=== PATIENT | male | born 1965 | race Caucasian/White ===

== ENCOUNTER 2017-12-06 22:32 | Observation (INO) ==
[2017-12-06] MEDS ORDERED: Sod Chloride 0.9% Inj 1,000 ML IV.SIG ONE (23:32)
--- NOTE | 2017-12-06 23:35 | ED ---
HPI General Chief complaint: Dizziness Stated complaint: [place]/Muscle cramps x 5pm Time Seen by Provider: 12/06/17 22:54 Source: patient, family, RN notes reviewed and old records reviewed Mode of arrival: ambulatory History of Present Illness HPI narrative: 52yM presenting with dizziness, fatigue, and muscle cramping. The patient states that he works in [employer] and was outside in the sun for hours today. Around 5 PM, he began to feel "dizzy like the room is spinning", had generalized fatigue, and began to have muscle cramping in his lower back and legs. Denies fever or chills, chest pain, cough, dyspnea, palpitations, diarrhea, or dysuria. He admits to nausea and "dry heaving". History of PE after plane trip several years ago, no longer on anticoagulation. Family history of father and brother with [place]/ CAD, mother with DM. Related Data Home Medications Medication Instructions Recorded Confirmed duloxetine [Cymbalta] 60 mg PO DAILY 12/06/17 12/06/17 lisinopril 10 mg PO DAILY 12/06/17 12/06/17 Allergies Allergy/AdvReac Type Severity Reaction Status Date / Time No Known Allergies Allergy Unverified 12/06/17 22:33 Review of Systems ROS: all other systems reviewed are negative Constitutional Reports body ache(s) and Reports headache(s) Eyes Denies blurry vision ENT Denies nasal congestion Cardiovascular Denies chest pain Respiratory Denies cough Gastrointestinal Denies nausea Genitourinary Denies dysuria Musculoskeletal Reports myalgias Neurologic Denies confusion Psychiatric Denies confusion PMFSH History History Provided By: Patient Medical History Medical History Depression (Acute) Hx of blood clots (Acute) Hypertension (Acute) Social History Social History Substance History: No History of Abuse Second Hand Smoke Exposure: No Smoking Status: Never smoker Tobacco Type: Smokeless Tobacco How Often Do You Have a Drink Containing Alcohol: 4 or more times a week Recent Travel in [facility] within the Last 8 Weeks: No Recent Out of Country Travel within the Last 8 Weeks: No Exam Const General: healthy appearing and no acute distress [facility] Head: normocephalic and atraumatic Face and sinus: normal facial exam Other: Mucosa dry Eyes General: appearance normal, both eyes and all related structures Pupils: PERRL Chest Chest: normal inspection of the chest Resp Effort & Inspection: normal respiratory effort Auscultation: no rhonchi and no wheezes Cardio Rate: regular rate Rhythm: regular rhythm GI Inspection: non-distended Palpation: soft and nontender Skin Other: Sunburn to face, arms, and legs Neuro General: alert, awake and oriented x3 Other: Pupils 3 mm and reactive bilaterally, no nystagmus assembler for puller over hand II-XII grossly intact Speech clear and fluent, no slurred speech or aphasia Motor strength 5/5 and sensation intact to all extremities, no pronator drift Ambulates with steady, even gait Extrem Other: No lower extremity edema or calf tenderness Psych Affect: normal affect Course Initial Documented Vital Signs Temperature 98.4 F 12/06/17 22:33 Pulse Rate 107 H 12/06/17 22:33 Respiratory Rate 20 12/06/17 22:33 Blood Pressure 122/79 12/06/17 22:33 Pulse Oximetry 95 12/06/17 22:33 Last Documented Vital Signs Temperature 98.4 F 12/06/17 22:33 Pulse Rate 107 H 12/06/17 22:33 Respiratory Rate 20 12/06/17 22:33 Blood Pressure 122/79 12/06/17 22:33 Pulse Oximetry 95 12/06/17 22:33 Medical Decision Making [facility] Narrative Medical decision making narrative: Assessment: 52yM presenting with dizziness, fatigue, muscle cramping Plan: EKG IV fluids Labs Addendum: Patient's workup shows acute kidney injury (creat 1.7, last labs in creat was 0.8), pseudohyponatremia, glucose of 200 with anion gap of 17. Will also check lactic acid, B-hydroxybutyrate, and VBG. The patient reports no personal history of DM but does have a family history. This patient will need IV hydration, insulin, and recheck labs/ glucose until anion gap closes. I explained these results to the patient and his daughter, who understand and agree. Case discussed with Marylin from [facility], patient to be kept for obs under Dr. Harmon. Medical Screen Exam Complete: Yes Emergency Medical Condition: Yes Differential Diagnosis Differential Diagnosis: Differential diagnosis includes, but is not limited to: dehydration, electrolyte abnormality, rhabdomyolysis, arrhythmia Lab Data Lab results reviewed: Yes I reviewed the patient's lab results. Result diagrams: 12/06/17 23:55 12/06/17 23:55 Lab Results 12/06/17 12/06/17 Range/Units 23:55 23:55 CBC w Diff Slide review pending WBC 12.6 H (4.0-11.0) th/mm3 RBC 4.86 (4.50-5.90) mil/mm3 Hgb 16.9 (13.0-17.0) gm/dL Hct 46.9 (39.0-51.0) % MCV 96.5 (80.0-100.0) fL MCH 34.8 H (27.0-34.0) pg MCHC 36.1 H (32.0-36.0) % RDW 12.5 (11.6-17.2) % Plt Count 314 (150-450) th/mm3 MPV 8.2 (7.0-11.0) fL Neut % (Auto) 70.2 H (16.0-70.0) % Lymph % (Auto) 20.2 (9.0-44.0) % [place] % (Auto) 5.9 (0.0-8.0) % Eos % (Auto) 0.5 (0.0-4.0) % Baso % (Auto) 3.2 H (0.0-2.0) % Neut # (Auto) 8.9 H (1.8-7.7) th/mm3 Lymph # (Auto) 2.5 (1.0-4.8) th/mm3 [place] # (Auto) 0.7 (0.0-0.9) th/mm3 Eos # (Auto) 0.1 (0.0-0.4) th/mm3 Baso # (Auto) 0.4 H (0.0-0.2) th/mm3 WBC Differential . Diff Scan Auto diff confirmed Differential Comment . Platelet Morphology Giant H (Normal) Sodium 130 L (136-145) meq/L Potassium 3.9 (3.5-5.1) meq/L Chloride 92 L (98-107) meq/L Carbon Dioxide 20.7 L (21.0-32.0) meq/L Anion Gap 17 H (5-15) meq/L BUN 17 (7-18) mg/dL Creatinine 1.70 H (0.60-1.30) mg/dL Estimated GFR 43 L (>89) mL/min Random Glucose 200 H (74-106) mg/dL Calcium 9.4 (8.5-10.1) mg/dL Magnesium 2.3 (1.5-2.5) mg/dL Total Bilirubin 0.8 (0.2-1.0) mg/dL AST 58 H (15-37) U/L ALT 107 H (12-78) U/L Alkaline Phosphatase 52 (45-117) U/L Total Creatine Kinase 265 (39-308) U/L Total Protein 8.1 (6.4-8.2) g/dL Albumin 4.5 (3.4-5.0) g/dL ECG Data Attestation: I personally reviewed and interpreted this ECG as follows: Interpretation: Rate: 90 BPM Rhythm: Sinus [place]: Normal Intervals: Normal intervals, no blocks, QTc 394 ms Q waves: III T waves: Inverted in III ST segments: No elevations or depressions Impression: Non-specific EKG, no significant changes as compared to EKG from 11/14. Discharge Plan Physicians Team ED Provider: Sofia Pollock Primary Care Provider: Lamine Westfall Rxs /Orders / Referrals /Forms Prescriptions: No Action lisinopril 10 mg Tablet 10 mg PO DAILY RF: 0 duloxetine [Cymbalta] 60 mg Capsule,Delayed Release(Dr/Ec) 60 mg PO DAILY RF: 0 Status ED Status: With Doctor
[2017-12-07 00:26] LABS: Baso # (Auto) 0.4 th/mm3 (0.0-0.2); Baso % (Auto) 3.2 % (0.0-2.0); Chloride 92 meq/L (98-107); Eos # (Auto) 0.1 th/mm3 (0.0-0.4); Eos % (Auto) 0.5 % (0.0-4.0); Hematocrit 46.9 % (39.0-51.0); Hemoglobin 16.9 gm/dL (13.0-17.0); Lymph # (Auto) 2.5 th/mm3 (1.0-4.8); Lymph % (Auto) 20.2 % (9.0-44.0); Mean Corpuscular Hemoglobin 34.8 pg (27.0-34.0); Mean Corpuscular Volume 96.5 fL (80.0-100.0); Mean Platelet Volume 8.2 fL (7.0-11.0); Mono # (Auto) 0.7 th/mm3 (0.0-0.9); Mono % (Auto) 5.9 % (0.0-8.0); Neut # (Auto) 8.9 th/mm3 (1.8-7.7); Neut % (Auto) 70.2 % (16.0-70.0); Platelet Count 314 th/mm3 (150-450); Potassium 3.9 meq/L (3.5-5.1); Red Blood Count 4.86 mil/mm3 (4.50-5.90); Red Cell Distribution Width 12.5 % (11.6-17.2); Sodium 130 meq/L (136-145); White Blood Count 12.6 th/mm3 (4.0-11.0)
[2017-12-07 00:30] LABS: Albumin 4.5 g/dL (3.4-5.0); Anion Gap 17 meq/L (5-15); Blood Urea Nitrogen 17 mg/dL (7-18); Calcium 9.4 mg/dL (8.5-10.1); Carbon Dioxide 20.7 meq/L (21.0-32.0); Glucose,Random 200 mg/dL (74-106); Magnesium 2.3 mg/dL (1.5-2.5)
[2017-12-07] MEDS ORDERED: Sod Chloride 0.9% Inj 1,000 ML IV.SIG ONE (00:32)
[2017-12-07 00:33] LABS: Alanine Aminotransferase 107 U/L (12-78); Aspartate Aminotransferase 58 U/L (15-37); Glomerular Filtration Rate 43 mL/min (>89)
[2017-12-07 00:35] LABS: Mean Corpuscular HGB Conc 36.1 % (32.0-36.0); Total Protein 8.1 g/dL (6.4-8.2)
[2017-12-07 00:36] LABS: Alkaline Phosphatase 52 U/L (45-117); Creatine Kinase 265 U/L (39-308)
[2017-12-07 01:19] LABS: VBG Base Excess -0.3 mmol/L (-2-2); VBG Blood Gas Oxygen Content 8.3 Vol % (9.0-17.0); VBG PCO2 46 mmHG (44-48); VBG PH 7.35 (7.360-7.400)
[2017-12-07 01:20] LABS: VBG PO2 26 mmHG (35-40)
[2017-12-07] MEDS ORDERED: LORazepam 1 MG Tablet PO PRN (01:26)
[2017-12-07] MEDS ORDERED: Haloperidol Inj 5 MG/ML Ampul IV.PUSH PRN (01:26)
[2017-12-07 01:49] LABS: Bilirubin,Urine Negative (Negative); Clarity,Urine Clear (Clear); Color,Urine Yellow (Yellw/Straw); Glucose,Urine (UA) Negative (Negative); Leukocyte Esterase,Urine Negative (Negative); Nitrite,Urine Negative (Negative); PH,Urine 5.5 (5.0-8.5); Urobilinogen,Urine 0.2 mg/dL (Less than 2)
[2017-12-07 01:56] LABS: Amorphous Sediment,Urine Few /hpf; RBC,Urine 0-3 /hpf (0-3); Squamous Epithelial Cell,Urine 0-5 /hpf (0-5); WBC,Urine 0-5 /hpf (0-5)
[2017-12-07] MEDS: Sod Chloride 0.9% Inj 1,000 ML IV.CONT SCH ×2 (02:21→11:14)
[2017-12-07] MEDS ORDERED: Dextrose 50% in Water 50 ML Vial IV.PUSH PRN (04:46)
[2017-12-07] MEDS: Insulin NovoLOG Aspart Correctional Sugar Inj SQ SCH ×6 (05:00→21:21)
[2017-12-07 06:37] LABS: Calcium 8.8 mg/dL (8.5-10.1); Carbon Dioxide 26.3 meq/L (21.0-32.0); Magnesium 2.2 mg/dL (1.5-2.5); Potassium 3.8 meq/L (3.5-5.1)
--- NOTE | 2017-12-07 09:00 | P.HP ---
History of Present Illness Primary Care Physician: Lamine Westfall DO Chief Complaint: Muscle cramps, lightheadedness, weakness History of Present Illness: 52-year-old male with known history of hypertension, hyperlipidemia, pulmonary emboli who presented the hospital because of lightheadedness, weakness , muscle cramps. 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 Patient states that when he got home he tried to drink a beer, however it did not taste good to him so he poured it out. His symptoms did not improve so he came to emergency department for evaluation. Patient had workup done and found to have elevated glucose, electrolyte abnormalities, acute kidney injury, signs of dehydration. Patient did have a mild anion gap at 17 which was easily corrected. Minimal elevation of beta hydroxybutyrate. Patient was started on IV fluid. Patient was given insulin 7 units in the emergency department with significant improvement of his glucose. Patient does not have any history of diabetes. It was recommended by the ER physician that the patient be observed in the hospital for further evaluation and management. Patient denies any polydipsia, polyuria, polyphagia. Denies any history of diabetes. Does have family history with his mother having diabetes. - Diagnosis (1) Diabetes mellitus, new onset (2) Dehydration (3) Acute kidney injury Review of Systems All other systems reviewed negative except as stated in HPI Gastrointestinal: Reports nausea Musculoskeletal: Reports muscle cramps Neurologic: Reports dizziness PMFSH - History History Provided By: Patient - Medical History Medical History: Medical History (Last Updated 12/07/17 @ 09:37 by YULISSA Salazar) Depression History of pulmonary embolism Hyperlipidemia Hypertension - Surgical History Surgical History: Surgical History (Last Updated 12/07/17 @ 09:37 by YULSISA Salazar) History of tonsillectomy - Family History Family History: Family History (Last Updated 12/07/17 @ 09:36 by YULISSA Salazar) Mother History of diabetes mellitus History of throat cancer Father History of heart disease Brother History of heart disease - Tobacco History Second Hand Smoke Exposure: No Tobacco Use In Past 30 Days: Yes Smoking Status: Never smoker Tobacco Type: Smokeless Tobacco - Alcohol History How Often Do You Have a Drink Containing Alcohol: 4 or more times a week - Substance Use History Substance History: No History of Abuse - Travel History Recent Travel in the [place] Within the Last 8 Weeks: No Recent Travel Out of the Country Within the Last 8 Weeks: No - Immunization History Tetanus Immunization: Unable to Assess Hx Influenza Vaccine This Season: Unable to Assess Medications and Allergies Active Medications: Active Medications Dextrose (D50w Vial) 50 ml IV.PUSH UNSCH PRN PRN Reason: PER HYPOGLYCEMIA PROTOCOL Flumazenil (Romazecon Inj) 0.2 mg IV.PUSH Q1M PRN PRN Reason: OVERSEDATION Glucagon (Glucagon Inj) 1 mg OTHER PRN PRN PRN Reason: for Hypoglycemia Protocol Haloperidol Lactate (Haldol Inj) 1 mg IV.PUSH Q15M PRN PRN Reason: for severe agitation Sodium Chloride (Ns Inj) 1,000 mls @ 100 mls/hr IV.CONT .Q10H ANITRA Last Admin: 12/07/17 02:21 Dose: 100 mls/hr Insulin Aspart (Novolog Insulin Correctional Sugar Inj) 0 unit SQ Q4HR ANITRA; Protocol Last Admin: 12/07/17 08:47 Dose: 2 unit Lorazepam (Ativan) 1 mg PO Q4H PRN PRN Reason: for CIWA 8-10 Lorazepam (Ativan Inj) 2 mg IV.PUSH Q2H PRN PRN Reason: for CIWA 11-14 Lorazepam (Ativan Inj) 2 mg IV.PUSH Q1H PRN PRN Reason: for CIWA 15-20 Lorazepam (Ativan Inj) 2 mg IV.PUSH Q15M PRN PRN Reason: for CIWA > 20 Lorazepam (Ativan Inj) 1 mg IV.PUSH Q4H PRN PRN Reason: for CIWA 8-10 Lorazepam (Ativan) 2 mg PO Q2H PRN PRN Reason: for CIWA 11-14 Ondansetron HCl (Zofran Inj) 4 mg IV.PUSH Q6H PRN PRN Reason: NAUSEA OR VOMITING Allergies Allergy/AdvReac Type Severity Reaction Status Date / Time No Known Allergies Allergy Unverified 12/06/17 22:33 Home Medications Medication Instructions Recorded Confirmed Type duloxetine [Cymbalta] 60 mg PO DAILY 12/06/17 12/06/17 History lisinopril 10 mg PO DAILY 12/06/17 12/06/17 History Exam Vital signs: Vital Signs 12/06/17 22:33 12/07/17 01:11 12/07/17 02:00 Temperature 98.4 F 97.1 F L Pulse Rate 107 H 99 H 95 H Respiratory Rate 20 16 20 Blood Pressure 122/79 140/93 H 127/71 Pulse Oximetry 95 100 12/07/17 04:00 12/07/17 08:00 Temperature 97.2 F L 97.4 F L Pulse Rate 97 H 76 Respiratory Rate 20 20 Blood Pressure 115/65 125/71 Pulse Oximetry 96 97 Intake & Output 12/06/17 12/07/17 12/07/17 18:59 06:59 18:59 Intake Total 3200 / 3200 Balance 3200 / 3200 Weight 95.8 kg Intake: IV 1999 NS Inj 1,000 ML @ Wide Open IV. 1999 SIG BOLUS ONE Rx#:[id number] Oral 1200 / 1200 Other: # Voids 4 Weight On Admission 92.986 kg Narrative: GENERAL: Well-developed, well-nourished, in no acute distress. alert and orientated HEENT: Head is normocephalic without any lesions or masses noted. Facial features are symmetric. Eyes: Pupils equal round reactive to light. Extraocular muscles are intact. Conjunctivae were clear. Oropharyngeal: Pharynx without any erythema edema. Tongue is midline without deviation. Buccal mucosa is moist without any masses or lesions NECK: Supple without any masses. Trachea midline no deviation. No JVD, no bruits are appreciated CARDIAC: Regular rhythm, regular rate. S1/S2 are heard. No murmurs gallops or rubs. LUNGS: Clear to auscultation bilaterally. No wheeze, rhonchi or rales. No use of accessory muscles on inspiration or expiration. ABDOMEN: Soft, nontender. Nondistended. Bowel sounds heard in all 4 quadrants. No organomegaly or masses. Negative rebound, negative guarding EXTREMITIES: No edema, pulses are equal bilaterally. No cyanosis or clubbing NEUROLOGY: Mood and affect appear appropriate. Cranial nerves II through XII grossly intact. Muscle strength 5/5 in upper and lower extremities bilaterally. Deep tendon reflexes are 2+ in upper and lower extremities bilaterally. Results - Labs CBC & Chem 7: 12/07/17 05:10 12/07/17 05:10 Labs: Laboratory Results - last 24 hr 12/06/17 12/06/17 12/07/17 23:55 23:55 01:10 CBC w Diff Slide review pending WBC 12.6 H RBC 4.86 Hgb 16.9 Hct 46.9 MCV 96.5 MCH 34.8 H MCHC 36.1 H RDW 12.5 Plt Count 314 MPV 8.2 Neut % (Auto) 70.2 H Lymph % (Auto) 20.2 [place] % (Auto) 5.9 Eos % (Auto) 0.5 Baso % (Auto) 3.2 H Neut # (Auto) 8.9 H Lymph # (Auto) 2.5 [place] # (Auto) 0.7 Eos # (Auto) 0.1 Baso # (Auto) 0.4 H WBC Differential . Diff Scan Auto diff confirmed Differential Comment . Platelet Morphology Giant H Puncture Site Patient Temperature VBG pH VBG pCO2 VBG pO2 VBG HCO3 VBG O2 Saturation VBG O2 Content VBG Base Excess VBG Carboxyhemoglobin VBG Methemoglobin Hemoglobin Inspired O2 Critical Value Sodium 130 L Potassium 3.9 Chloride 92 L Carbon Dioxide 20.7 L Anion Gap 17 H BUN 17 Creatinine 1.70 H Estimated GFR 43 L POC Glucose Random Glucose 200 H Lactic Acid 2.1 H Calcium 9.4 Magnesium 2.3 Total Bilirubin 0.8 AST 58 H ALT 107 H Alkaline Phosphatase 52 Total Creatine Kinase 265 Total Protein 8.1 Albumin 4.5 Beta-Hydroxybutyric Acd Urine Color Urine Clarity Urine pH Ur Specific [place] Urine Protein Urine Glucose (UA) Urine Ketones Urine Occult Blood Urine Nitrate Urine Bilirubin Urine Urobilinogen Ur Leukocyte Esterase Urine RBC Urine WBC Ur Squamous Epith Cells Amorphous Sediment Micro UA Comment Ur Microscopic Review Urine Culture Comments 12/07/17 12/07/17 12/07/17 01:10 01:10 01:25 CBC w Diff WBC RBC Hgb Hct MCV MCH MCHC RDW Plt Count MPV Neut % (Auto) Lymph % (Auto) [place] % (Auto) Eos % (Auto) Baso % (Auto) Neut # (Auto) Lymph # (Auto) [place] # (Auto) Eos # (Auto) Baso # (Auto) WBC Differential Diff Scan Differential Comment Platelet Morphology Puncture Site R arm Patient Temperature 98.6 VBG pH 7.35 L VBG pCO2 46 VBG pO2 26 L* VBG HCO3 25 VBG O2 Saturation 37 L VBG O2 Content 8.3 L VBG Base Excess -0.3 VBG Carboxyhemoglobin 1.1 VBG Methemoglobin 1.5 Hemoglobin 16.0 Inspired O2 21 Critical Value Yes Sodium Potassium Chloride Carbon Dioxide Anion Gap BUN Creatinine Estimated GFR POC Glucose 186 H Random Glucose Lactic Acid Calcium Magnesium Total Bilirubin AST ALT Alkaline Phosphatase Total Creatine Kinase Total Protein Albumin Beta-Hydroxybutyric Acd 0.55 H Urine Color Urine Clarity Urine pH Ur Specific [place] Urine Protein Urine Glucose (UA) Urine Ketones Urine Occult Blood Urine Nitrate Urine Bilirubin Urine Urobilinogen Ur Leukocyte Esterase Urine RBC Urine WBC Ur Squamous Epith Cells Amorphous Sediment Micro UA Comment Ur Microscopic Review Urine Culture Comments 12/07/17 12/07/17 12/07/17 01:30 04:11 05:10 CBC w Diff WBC RBC Hgb Hct MCV MCH MCHC RDW Plt Count MPV Neut % (Auto) Lymph % (Auto) [place] % (Auto) Eos % (Auto) Baso % (Auto) Neut # (Auto) Lymph # (Auto) [place] # (Auto) Eos # (Auto) Baso # (Auto) WBC Differential Diff Scan Differential Comment Platelet Morphology Puncture Site Patient Temperature VBG pH VBG pCO2 VBG pO2 VBG HCO3 VBG O2 Saturation VBG O2 Content VBG Base Excess VBG Carboxyhemoglobin VBG Methemoglobin Hemoglobin Inspired O2 Critical Value Sodium 136 Potassium 3.8 Chloride 100 D Carbon Dioxide 26.3 Anion Gap 10 BUN 14 Creatinine 1.30 Estimated GFR 58 L POC Glucose 268 H Random Glucose 189 H Lactic Acid Calcium 8.8 Magnesium 2.2 Total Bilirubin AST ALT Alkaline Phosphatase Total Creatine Kinase Total Protein Albumin Beta-Hydroxybutyric Acd Urine Color Yellow Urine Clarity Clear Urine pH 5.5 Ur Specific [place] 1.010 Urine Protein Negative Urine Glucose (UA) Negative Urine Ketones Trace H Urine Occult Blood Negative Urine Nitrate Negative Urine Bilirubin Negative Urine Urobilinogen 0.2 Ur Leukocyte Esterase Negative Urine RBC 0-3 Urine WBC 0-5 Ur Squamous Epith Cells 0-5 Amorphous Sediment Few H Micro UA Comment Culture not ind Ur Microscopic Review Microscopic reviewed Urine Culture Comments Culture not ind 12/07/17 07:35 CBC w Diff WBC RBC Hgb Hct MCV MCH MCHC RDW Plt Count MPV Neut % (Auto) Lymph % (Auto) [place] % (Auto) Eos % (Auto) Baso % (Auto) Neut # (Auto) Lymph # (Auto) [place] # (Auto) Eos # (Auto) Baso # (Auto) WBC Differential Diff Scan Differential Comment Platelet Morphology Puncture Site Patient Temperature VBG pH VBG pCO2 VBG pO2 VBG HCO3 VBG O2 Saturation VBG O2 Content VBG Base Excess VBG Carboxyhemoglobin VBG Methemoglobin Hemoglobin Inspired O2 Critical Value Sodium Potassium Chloride Carbon Dioxide Anion Gap BUN Creatinine Estimated GFR POC Glucose 157 H Random Glucose Lactic Acid Calcium Magnesium Total Bilirubin AST ALT Alkaline Phosphatase Total Creatine Kinase Total Protein Albumin Beta-Hydroxybutyric Acd Urine Color Urine Clarity Urine pH Ur Specific [place] Urine Protein Urine Glucose (UA) Urine Ketones Urine Occult Blood Urine Nitrate Urine Bilirubin Urine Urobilinogen Ur Leukocyte Esterase Urine RBC Urine WBC Ur Squamous Epith Cells Amorphous Sediment Micro UA Comment Ur Microscopic Review Urine Culture Comments Caprini VTE Risk Assessment Caprini VTE Risk Assessment: Moderate/High Risk (score >= 2) [place]rini Risk Assessment Model: Point Value = 1 Point Value = 2 Point Value = 3 Point Value = 5 Age 41-60 Minor surgery BMI > 25 kg/m2 Swollen legs Varicose veins or History of unexplained or recurrent spontaneous Oral contraceptives or hormone replacement Sepsis (< 1 month) Serious lung disease, including pneumonia (< 1 month) Abnormal pulmonary function Acute myocardial infarction Congestive heart failure (< 1 month) History of inflammatory bowel disease Medical patient at bed rest Age 61-74 Arthroscopic surgery Major open surgery (> 45 min) Laparoscopic surgery (> 45 min) Malignancy Confined to bed (> 72 hours) Immobilizing plaster cast Central venous access Age >= 75 History of VTE Family history of VTE Factor V Leiden Prothrombin [id number] Lupus anticoagulant Anticardiolipin antibodies Elevated serum homocysteine Heparin-induced thrombocytopenia Other congenital or acquired thrombophilia Stroke (< 1 month) Elective arthroplasty Hip, pelvis, or leg fracture Acute spinal cord injury (< 1 month) Prophylaxis Regimen: Total Risk Factor Score Risk Level Prophylaxis Regimen 0-1 Low Early ambulation 2 Moderate Order ONE of the following: *Sequential Compression Device (SCD) *Heparin 5000 units SQ BID 3-4 Higher Order ONE of the following medications: *Heparin 5000 units SQ TID *Enoxaparin/Lovenox 40 mg SQ daily (WT < 150 kg, CrCl > 30 mL/min) *Enoxaparin/Lovenox 30 mg SQ daily (WT < 150 kg, CrCl > 10-29 mL/min) *Enoxaparin/Lovenox 30 mg SQ BID (WT < 150 kg, CrCl > 30 mL/min) AND/OR *Sequential Compression Device (SCD) 5 or more Highest Order ONE of the following medications: *Heparin 5000 units SQ TID (Preferred with Epidurals) *Enoxaparin/Lovenox 40 mg SQ daily (WT < 150 kg, CrCl > 30 mL/min) *Enoxaparin/Lovenox 30 mg SQ daily (WT < 150 kg, CrCl > 10-29 mL/min) *Enoxaparin/Lovenox 30 mg SQ BID (WT < 150 kg, CrCl > 30 mL/min) AND *Sequential Compression Device (SCD) Assessment and Plan - Assessment (1) Diabetes mellitus, new onset Code(s): E11.9 - Type 2 diabetes mellitus without complications Status: Acute (2) Dehydration Code(s): E86.0 - Dehydration Status: Acute (3) Acute kidney injury Code(s): N17.9 - Acute kidney failure, unspecified Status: Acute - Plan New onset diabetes -Patient denies any previous history of diabetes, patient does have family history of diabetes -Patient did present with mild anion gap of 17, however this could be related to pseudohyponatremia, dehydration, anion gap has resolved -Patient was started on sliding scale insulin with only receiving 8 units of insulin during his entire stay in the hospital. -Consulted adult educator, dietitian for counseling -Awaiting hemoglobin A1c to determine outpatient management with lifestyle modifications versus oral medication versus insulin Acute kidney injury, secondary to dehydration, resolved -Continue IV fluids -Continue monitor renal function Elevated liver enzymes in a patient with chronic alcohol use -Continue monitor liver enzymes -CIWA protocol, CIWA score remains 0 Hypertension -Home medications continued DVT prevention -Sequential compression devices Discharge Planning: Discharge home in stable condition Activity: Ad darshan. Diet: Diabetic diet Medication per medication reconciliation Follow-up with primary medical doctor in 1 week
[2017-12-07 09:23] LABS: Baso # (Auto) 0.1 th/mm3 (0.0-0.2); Baso % (Auto) 0.9 % (0.0-2.0); Eos # (Auto) 0.2 th/mm3 (0.0-0.4); Eos % (Auto) 1.7 % (0.0-4.0); Lymph # (Auto) 2.5 th/mm3 (1.0-4.8); Lymph % (Auto) 26.2 % (9.0-44.0); Mean Corpuscular HGB Conc 34.8 % (32.0-36.0); Mean Corpuscular Hemoglobin 33.8 pg (27.0-34.0); Mean Corpuscular Volume 97.1 fL (80.0-100.0); Mean Platelet Volume 8.6 fL (7.0-11.0); Mono # (Auto) 0.6 th/mm3 (0.0-0.9); Mono % (Auto) 6.1 % (0.0-8.0); Neut # (Auto) 6.3 th/mm3 (1.8-7.7); Neut % (Auto) 65.1 % (16.0-70.0); Platelet Count 247 th/mm3 (150-450); Red Blood Count 4.43 mil/mm3 (4.50-5.90); Red Cell Distribution Width 12.6 % (11.6-17.2); White Blood Count 9.7 th/mm3 (4.0-11.0)
[2017-12-07 16:56] LABS: Hemoglobin A1c 6.9 % (4.3-6.0)
[2017-12-07] MEDS: Duloxetine 60 MG DR Capsule PO SCH (17:16)
[2017-12-07] MEDS: Lisinopril 10 MG Tablet PO SCH (17:16)
--- NOTE | 2017-12-07 22:27 | ECG ---
Date Performed: 12/07/2017 Time Performed: 00:09:37 PTAGE: 52 years EKG: Sinus rhythm NORMAL ECG PREVIOUS TRACING : 11/14/2013 03.30 Since the previous tracing, no significant change noted DOCTOR: Cesar Casey Interpretating Date/Time 12/07/2017 22:25:55
[2017-12-08] MEDS: Insulin NovoLOG Aspart Correctional Sugar Inj SQ SCH ×3 (03:12→07:45)
[2017-12-08] MEDS: Sod Chloride 0.9% Inj 1,000 ML IV.CONT SCH ×2 (04:30→08:43)
[2017-12-08 06:25] LABS: Chloride 107 meq/L (98-107); Potassium 4.1 meq/L (3.5-5.1); Sodium 141 meq/L (136-145)
[2017-12-08 06:32] LABS: Baso % (Auto) 0.7 % (0.0-2.0); Eos # (Auto) 0.1 th/mm3 (0.0-0.4); Hematocrit 39.7 % (39.0-51.0); Hemoglobin 13.4 gm/dL (13.0-17.0); Lymph # (Auto) 1.4 th/mm3 (1.0-4.8); Lymph % (Auto) 34.8 % (9.0-44.0); Mean Corpuscular HGB Conc 33.8 % (32.0-36.0); Mean Corpuscular Hemoglobin 33.3 pg (27.0-34.0); Mean Corpuscular Volume 98.6 fL (80.0-100.0); Mean Platelet Volume 7.9 fL (7.0-11.0); Mono # (Auto) 0.3 th/mm3 (0.0-0.9); Neut # (Auto) 2.3 th/mm3 (1.8-7.7); Neut % (Auto) 54.5 % (16.0-70.0); Platelet Count 153 th/mm3 (150-450); Red Blood Count 4.03 mil/mm3 (4.50-5.90); Red Cell Distribution Width 11.9 % (11.6-17.2); White Blood Count 4.1 th/mm3 (4.0-11.0)
[2017-12-08 06:47] LABS: Anion Gap 9 meq/L (5-15); Blood Urea Nitrogen 10 mg/dL (7-18); Calcium 7.9 mg/dL (8.5-10.1); Carbon Dioxide 25.2 meq/L (21.0-32.0); Glomerular Filtration Rate Greater Than 89 mL/min (>89); Glucose,Random 161 mg/dL (74-106)
--- NOTE | 2017-12-08 08:34 | P.PN ---
Subjective Interval history: 52-year-old male who is seen and examined today for follow-up on new onset diabetes dehydration. Patient is doing much better. Patient denies any new complaints. Vital signs are stable. Patient remains afebrile. Physical Exam Vital signs: Vital Signs 12/07/17 12:00 12/07/17 16:00 12/07/17 20:00 Temperature 97.2 F L 98.1 F 97.9 F Pulse Rate 84 79 67 Respiratory Rate 20 20 20 Blood Pressure 137/80 147/90 H 136/84 Pulse Oximetry 98 98 12/08/17 00:00 Temperature 96.4 F L Pulse Rate 64 Respiratory Rate 20 Blood Pressure 145/79 H Pulse Oximetry 95 Intake & Output 12/07/17 12/08/17 12/08/17 18:59 06:59 18:59 Intake Total 3248 / 3248 1480 / 1480 Balance 3248 / 3248 1480 / 1480 Weight 95.5 kg Intake: IV 1688 / 1688 1000 / 1000 NS Inj 1,000 ML @ 100 mls/hr IV 1688 / 1688 1000 / 1000 .CONT .Q10H ANITRA Rx#:[id number] Oral 1560 / 1560 480 / 480 Other: # Voids 3 3 Narrative: GENERAL: Well-developed, well-nourished, in no acute distress. alert and orientated HEENT: Head is normocephalic without any lesions or masses noted. Facial features are symmetric. Eyes: Extraocular muscles are intact. Conjunctivae were clear. NECK: Supple without any masses. Trachea midline no deviation. No JVD, CARDIAC: Regular rhythm, regular rate. S1/S2 are heard. No murmurs gallops or rubs. LUNGS: Clear to auscultation bilaterally. No wheeze, rhonchi or rales. No use of accessory muscles on inspiration or expiration. ABDOMEN: Soft, nontender. Nondistended. Bowel sounds heard in all 4 quadrants. No organomegaly or masses. Negative rebound, negative guarding EXTREMITIES: No edema, pulses are equal bilaterally. No cyanosis or clubbing NEUROLOGY: Mood and affect appear appropriate. Cranial nerves II through XII grossly intact. Moving all extremities, speech is clear Results - Labs CBC & Chem 7: 12/08/17 05:05 12/08/17 05:05 Laboratory Results - last 24 hr 12/07/17 12/07/17 12/07/17 05:10 05:10 11:12 CBC w Diff Auto diff final WBC 9.7 RBC 4.43 L Hgb 15.0 Hct 43.0 MCV 97.1 MCH 33.8 MCHC 34.8 RDW 12.6 Plt Count 247 MPV 8.6 Neut % (Auto) 65.1 Lymph % (Auto) 26.2 [place] % (Auto) 6.1 Eos % (Auto) 1.7 Baso % (Auto) 0.9 Neut # (Auto) 6.3 Lymph # (Auto) 2.5 [place] # (Auto) 0.6 Eos # (Auto) 0.2 Baso # (Auto) 0.1 WBC Differential . Differential Comment . Sodium Potassium Chloride Carbon Dioxide Anion Gap BUN Creatinine Estimated GFR POC Glucose 186 H Random Glucose Hemoglobin A1c 6.9 H Calcium 12/07/17 12/07/17 12/08/17 16:11 20:59 04:25 CBC w Diff WBC RBC Hgb Hct MCV MCH MCHC RDW Plt Count MPV Neut % (Auto) Lymph % (Auto) [place] % (Auto) Eos % (Auto) Baso % (Auto) Neut # (Auto) Lymph # (Auto) [place] # (Auto) Eos # (Auto) Baso # (Auto) WBC Differential Differential Comment Sodium Potassium Chloride Carbon Dioxide Anion Gap BUN Creatinine Estimated GFR POC Glucose 189 H 170 H 173 H Random Glucose Hemoglobin A1c Calcium 12/08/17 12/08/17 12/08/17 05:05 05:05 07:24 CBC w Diff Auto diff final WBC 4.1 D RBC 4.03 L Hgb 13.4 Hct 39.7 MCV 98.6 MCH 33.3 MCHC 33.8 RDW 11.9 Plt Count 153 D MPV 7.9 Neut % (Auto) 54.5 Lymph % (Auto) 34.8 [place] % (Auto) 7.0 Eos % (Auto) 3.0 Baso % (Auto) 0.7 Neut # (Auto) 2.3 Lymph # (Auto) 1.4 [place] # (Auto) 0.3 Eos # (Auto) 0.1 Baso # (Auto) 0.0 WBC Differential . Differential Comment . Sodium 141 Potassium 4.1 Chloride 107 Carbon Dioxide 25.2 Anion Gap 9 BUN 10 Creatinine 0.76 Estimated GFR Greater than 89 POC Glucose 154 H Random Glucose 161 H Hemoglobin A1c Calcium 7.9 L D Assessment and Plan - Assessment (1) Diabetes mellitus, new onset Code(s): E11.9 - Type 2 diabetes mellitus without complications Status: Acute (2) Dehydration Code(s): E86.0 - Dehydration Status: Acute (3) Acute kidney injury Code(s): N17.9 - Acute kidney failure, unspecified Status: Acute - Plan New onset diabetes -Patient denies any previous history of diabetes, patient does have family history of diabetes -Patient did present with mild anion gap of 17, however this could be related to pseudohyponatremia, dehydration, anion gap has resolved -Accu-Cheks with sliding scale insulin -Patient has undergone diabetic education -Awaiting dietary consult -Hemoglobin A1c 6.9 -Started metformin 500 mg daily Acute kidney injury, secondary to dehydration, resolved -Continue IV fluids -Continue monitor renal function Elevated liver enzymes in a patient with chronic alcohol use -Continue monitor liver enzymes -CIWA protocol, CIWA score remains 0 Hypertension -Home medications continued DVT prevention -Sequential compression devices Discharge Planning: Discharge home in stable condition Activity: Ad darshan. Diet: Diabetic diet Medication per medication reconciliation, patient was given prescription for metformin, glucometer Follow-up with Dr. Westfall in 1 week
[2017-12-08] MEDS: Duloxetine 60 MG DR Capsule PO SCH (08:44)
[2017-12-08] MEDS: Lisinopril 10 MG Tablet PO SCH (08:44)
[2017-12-08 09:09] VITALS: BP 125/69; PULSE 60; RESP 18; TEMP 96.7; O2SAT 97
--- NOTE | 2017-12-08 10:03 | P.DIET ---
Nutritional Evaluation Type of nutrition evaluation: initial Screening comments[place]07[place] [facility] [place]; New Onset Diabetes Subjective Subjective Comments: Pt provided w/Nutrition Education for Consistent CHO 2000ADA, low Na and Reading Food Labels. Objective - Diagnosis DKA, Dehydratin, JAS - Objective [place] body weight: 72.7 kg % IBW: 132 Body Weight Used for Calculations: IBW Energy Needs - Lower Range (kCal/kg): 25 Energy Needs - Upper Range (kCal/kg): 30 Lower Limit kCal/kg (kCals): 1,818 Upper Limit kCal/kg (kCals): 2,181 Lower Limit Protein Factor (Grams per Kg): 1.1 Upper Limit Protein Factor (Grams per Kg): 1.4 Lower Protein Needs (Protein): 80 Upper Protein Needs (Protein): 102 Dietitian Reviewed in Medical Record: Current diet, Curent medications, Intake & Output, Labs, Medical history Diet Order: Objective Comments: PMH Includes: Depression, Pulmonary Embolism, HLD, HTN A1C 6.9, POC Glucose 154 Assessment Assessment: Newly Diagnosed Diabetes. Pt provided w/Nutrition Education for Consistent CHO 1999ADA, low Na and Reading Food Labels. Pt's questions answered to his satisfaction. RD Contact Info provided for additional questions as needed. Recommendations: 1. Nutrition Education for Consistent CHO 2000ADA, low Na and Reading Food Labels 2. Pt's questions answered to his satisfaction 3. RD Contact Info provided for additional questions as needed
== END 2017-12-08 10:13 | disposition home or self-care (01) ==
LOC: PHED 22:32 → PHEDA 22:32 → PH3 12-07 01:57
PROVIDERS: ADMIT Hospitalist; ATTEND Hospitalist

== ENCOUNTER 2018-01-16 16:14 | Observation (INO) ==
--- NOTE | 2018-01-16 17:13 | ED ---
HPI General Chief complaint: Respiratory Symptoms Stated complaint: SOB, LT SIDE CHEST DISCOMFORT Time Seen by Provider: 01/16/18 17:09 Source: patient Mode of arrival: ambulatory Limitations: no limitations History of Present Illness HPI narrative: 52-year-old male patient with history of PE, had been taken off of Xarelto about 18 months ago, presents to the ER today for 1 week history of left sided chest pains that hurts with movements, currently an 8 out of 10. He states it feels similar to when he had the pulmonary embolism. He denies any fevers or any other issues. Related Data Home Medications Medication Instructions Recorded Confirmed duloxetine [Cymbalta] 45 mg PO DAILY 12/06/17 01/16/18 lisinopril 10 mg PO DAILY 12/06/17 01/16/18 Previous Rx's Medication Instructions Recorded blood-glucose meter [ReliOn #1 each 12/08/17 All-In-One Meter] metformin [Glucophage] 500 mg PO DAILY #30 tab 12/08/17 Allergies Allergy/AdvReac Type Severity Reaction Status Date / Time No Known Allergies Allergy Verified 01/16/18 16:29 Review of Systems ROS: all other systems reviewed are negative COUNTS INCLUDE 234 BEDS AT THE [facility] Medical History Medical History Diabetes (Acute) History of pulmonary embolism (Acute) Hyperlipidemia (Acute) Hypertension (Acute) Surgical History Surgical History History of tonsillectomy (Acute) Family History Family History Mother History of diabetes mellitus History of throat cancer Father History of heart disease Brother History of heart disease Social History Social History Substance History: No History of Abuse Second Hand Smoke Exposure: No Smoking Status: Never smoker Tobacco Type: Smokeless Tobacco How Often Do You Have a Drink Containing Alcohol: 4 or more times a week Recent Travel in [facility] within the Last 8 Weeks: No Recent Out of Country Travel within the Last 8 Weeks: No Immunization History Tetanus Immunization: <5 Years Exam Narrative Exam Narrative: GENERAL: Well-developed middle-age male patient currently in mild distress. Awake and oriented x3. SKIN: Focused skin assessment warm/dry. HEAD: Atraumatic. Normocephalic. EYES: Pupils equal and round. No scleral icterus. No injection or drainage. ENT: No nasal bleeding or discharge. Mucous membranes pink and moist. NECK: Trachea midline. No JVD. CARDIOVASCULAR: Regular rate and rhythm. No murmur appreciated. CHEST: Mildly tender palpation of the left lower chest wall without deformity or crepitance. No retractions or use of accessory muscles. RESPIRATORY: No accessory muscle use. Clear to auscultation. Breath sounds equal bilaterally. GASTROINTESTINAL: Abdomen soft, non-tender, nondistended. Hepatic and splenic margins not palpable. MUSCULOSKELETAL: No obvious deformities. No clubbing. No cyanosis. No edema. NEUROLOGICAL: Awake and alert. No obvious cranial nerve deficits. Motor grossly within normal limits. Normal speech. PSYCHIATRIC: Appropriate mood and affect; insight and judgment normal. Course Initial Documented Vital Signs Temperature 98.8 F 01/16/18 16:25 Pulse Rate 92 H 01/16/18 16:25 Respiratory Rate 16 01/16/18 16:25 Blood Pressure 136/82 01/16/18 16:25 Pulse Oximetry 95 01/16/18 16:25 Last Documented Vital Signs Temperature 98.8 F 01/16/18 16:25 Pulse Rate 90 01/16/18 18:24 Respiratory Rate 16 01/16/18 18:24 Blood Pressure 141/80 H 01/16/18 18:24 Pulse Oximetry 96 01/16/18 18:24 Medical Decision Making MDM Narrative Medical decision making narrative: EKG did not show any signs of acute changes. Chest x-ray was fairly unremarkable. D-dimer is negative. Interestingly, he was fairly tender on palpation in the left upper quadrant and lower rib area, and he admits he drinks daily. His pancreatic enzymes are elevated. It appears that he has some underlying pancreatitis. At this point, my plan would be to admit him for further treatment. Case is discussed with Dr. Harmon for admission. Medical Screen Exam Complete: Yes Emergency Medical Condition: Yes Differential Diagnosis Differential Diagnosis: ACS versus costochondritis versus pneumonia versus PE Lab Data Lab results reviewed: Yes I reviewed the patient's lab results. Result diagrams: 01/16/18 17:10 01/16/18 17:10 Lab Results 11/08/2801/16/18 01/16/18 Range/Units 17:10 17:10 17:10 CBC w Diff Auto diff final WBC 4.1 (4.0-11.0) th/mm3 RBC 4.65 (4.50-5.90) mil/mm3 Hgb 15.6 (13.0-17.0) gm/dL Hct 44.6 (39.0-51.0) % MCV 96.0 (80.0-100.0) fL MCH 33.5 (27.0-34.0) pg MCHC 34.9 (32.0-36.0) % RDW 12.8 (11.6-17.2) % Plt Count 270 (150-450) th/mm3 MPV 7.3 (7.0-11.0) fL Neut % (Auto) 59.0 (16.0-70.0) % Lymph % (Auto) 23.5 (9.0-44.0) % [place] % (Auto) 10.0 H (0.0-8.0) % Eos % (Auto) 3.6 (0.0-4.0) % Baso % (Auto) 3.9 H (0.0-2.0) % Neut # (Auto) 2.4 (1.8-7.7) th/mm3 Lymph # (Auto) 1.0 (1.0-4.8) th/mm3 [place] # (Auto) 0.4 (0.0-0.9) th/mm3 Eos # (Auto) 0.1 (0.0-0.4) th/mm3 Baso # (Auto) 0.2 (0.0-0.2) th/mm3 WBC Differential . Differential Comment . PT 10.2 (9.8-11.6) sec INR 1.0 Ratio APTT 23.9 (23.4-31.7) sec D-Dimer Quant (PE/DVT) 0.32 (0.00-0.50) mg/L FEU Sodium 141 (136-145) meq/L Potassium 4.1 (3.5-5.1) meq/L Chloride 105 (98-107) meq/L Carbon Dioxide 23.5 (21.0-32.0) meq/L Anion Gap 13 (5-15) meq/L BUN 10 (7-18) mg/dL Creatinine 0.71 (0.60-1.30) mg/dL Estimated GFR Greater than 89 (>89) mL/min Random Glucose 124 H (74-106) mg/dL Calcium 8.5 (8.5-10.1) mg/dL Total Bilirubin 0.4 (0.2-1.0) mg/dL AST 54 H (15-37) U/L ALT 89 H (12-78) U/L Alkaline Phosphatase 56 (45-117) U/L Troponin I Less than 0.02 L (0.02-0.05) ng/mL Total Protein 7.0 (6.4-8.2) g/dL Albumin 3.8 (3.4-5.0) g/dL Lipase 958 H (73-393) U/L Imaging Data Attestation: I personally reviewed and interpreted this imaging study as follows : Radiologist's impression: Chest X-Ray 01/16/18 17:09 CONCLUSION: No acute pulmonary infiltrates. Abdomen/Pelvis CT 01/16/18 18:09 CONCLUSION: 1. Atherosclerosis. 2. Hepatomegaly and hepatic steatosis. 3. Small fat-containing umbilical hernia. ECG Data Attestation: I personally reviewed and interpreted this ECG as follows: Interpretation: EKG shows NSR, no ST elevation or depression, and no arrhythmias. No significant T-wave inversions. Discharge Plan Discharge Disposition Patient Disposition: 30 Still Patient Discharge Condition Condition: Stable Discharge Details Anticipated Discharge Date: 01/16/18 Diagnosis: Acute pancreatitis Physicians Team ED Provider: Lizeth Cristina Primary Care Provider: Lamine Westfall Rxs /Orders / Referrals /Forms Prescriptions: No Action lisinopril 10 mg Tablet 10 mg PO DAILY RF: 0 duloxetine [Cymbalta] 60 mg Capsule,Delayed Release(Dr/Ec) 45 mg PO DAILY RF: 0 metformin [Glucophage] 500 mg Tablet 500 mg PO DAILY Qty: 30 RF: 0 blood-glucose meter [ReliOn All-In-One Meter] Kit Qty: 1 RF: 0 Status ED Status: With Doctor
[2018-01-16 17:32] LABS: Baso # (Auto) 0.2 th/mm3 (0.0-0.2); Baso % (Auto) 3.9 % (0.0-2.0); Eos # (Auto) 0.1 th/mm3 (0.0-0.4); Eos % (Auto) 3.6 % (0.0-4.0); Hematocrit 44.6 % (39.0-51.0); Hemoglobin 15.6 gm/dL (13.0-17.0); Lymph % (Auto) 23.5 % (9.0-44.0); Mean Corpuscular HGB Conc 34.9 % (32.0-36.0); Mean Corpuscular Hemoglobin 33.5 pg (27.0-34.0); Mean Platelet Volume 7.3 fL (7.0-11.0); Mono # (Auto) 0.4 th/mm3 (0.0-0.9); Neut # (Auto) 2.4 th/mm3 (1.8-7.7); Platelet Count 270 th/mm3 (150-450); Red Blood Count 4.65 mil/mm3 (4.50-5.90); Red Cell Distribution Width 12.8 % (11.6-17.2); White Blood Count 4.1 th/mm3 (4.0-11.0)
--- NOTE | 2018-01-16 17:38 | XR ---
EXAM DATE: 01/16/2018 5:36 PM EST AGE/SEX: 52 years / Male INDICATIONS: Shortness of breath and left sided chest pain. CLINICAL DATA: This is the patient's initial encounter. Patient reports that signs and symptoms have been present for 2 weeks and indicates a pain score of 6/10. MEDICAL/SURGICAL HISTORY: . History of blood clots in left lung. None. COMPARISON: No prior exams available for comparison. FINDINGS: A single AP view of the chest demonstrates the lungs to be symmetrically aerated without evidence of mass, infiltrate or effusion. There is a tiny granuloma in the peripheral left midlung. The cardiome diastinal contours are unremarkable. Osseous structures are intact. There is an old healed fracture involving the right clavicle. CONCLUSION: No acute pulmonary infiltrates. Electronically signed by: Jose Flannery MD 01/16/2018 5:37 PM EST
[2018-01-16 18:01] LABS: Chloride 105 meq/L (98-107); Potassium 4.1 meq/L (3.5-5.1); Sodium 141 meq/L (136-145)
[2018-01-16 18:05] LABS: Albumin 3.8 g/dL (3.4-5.0); Anion Gap 13 meq/L (5-15); Blood Urea Nitrogen 10 mg/dL (7-18); Calcium 8.5 mg/dL (8.5-10.1); Carbon Dioxide 23.5 meq/L (21.0-32.0); Glucose,Random 124 mg/dL (74-106); Lipase 958 U/L (73-393)
[2018-01-16 18:08] LABS: Alanine Aminotransferase 89 U/L (12-78); Aspartate Aminotransferase 54 U/L (15-37); Glomerular Filtration Rate Greater Than 89 mL/min (>89)
[2018-01-16 18:11] LABS: Alkaline Phosphatase 56 U/L (45-117)
[2018-01-16 18:12] LABS: Activated Partial Thrombo Time 23.9 sec (23.4-31.7); D-Dimer 0.32 mg/L FEU (0.00-0.50); Prothrombin Time 10.2 sec (9.8-11.6)
--- NOTE | 2018-01-16 19:11 | CT ---
EXAM DATE: 01/16/2018 7:04 PM EST AGE/SEX: 52 years / Male INDICATIONS: Left upper quadrant pain. CLINICAL DATA: This is the patient's initial encounter. Patient reports that signs and symptoms have been present for 2 weeks and indicates a pain score of 8/10. MEDICAL/SURGICAL HISTORY: Diabetes. Hypertension. Pulmonary embolism. Tonsillectomy. ORAL CONTRAST: No oral contrast ingested. RADIATION DOSE: 19.51 CTDI (mGy) COMPARISON: No prior exams available for comparison. TECHNIQUE: Multiple contiguous axial images were obtained through the abdomen and pelvis following b olus infusion of 95 ml Omnipaque 350 (iohexol) nonionic water-soluble contrast as a single exam dos e. No oral contrast ingested. Using automated exposure control and adjustment of the mA and/or kV ac cording to patient size, radiation dose was kept as low as reasonably achievable to obtain optimal di agnostic quality images. DICOM format image data is available electronically for review and comparis on. FINDINGS: Lung bases are clear. No pleural or pericardial effusions are seen. There is hepatic steatosis and he patomegaly noted. Kidneys, adrenals, pancreas unremarkable. Calcified splenic granulomas are noted. T iny fat-containing umbilical hernia. Urinary bladder and prostate are unremarkable. Atherosclerotic c alcifications of the aorta and iliac vessels are noted. Osseous structures demonstrate degenerative c hanges of the spine. Bilateral L5 spondylolysis. Appendix is normal. Small and large bowel are unrema rkable. CONCLUSION: 1. Atherosclerosis. 2. Hepatomegaly and hepatic steatosis. 3. Small fat-containing umbilical hernia. Electronically signed by: Hill De La Rosa MD 01/16/2018 7:10 PM EST
[2018-01-16] MEDS ORDERED: Bisacodyl 10 MG Supp RECTAL PRN (19:30)
[2018-01-16] MEDS ORDERED: Dextrose 50% in Water 50 ML Vial IV.PUSH PRN (19:40)
[2018-01-16] MEDS ORDERED: Sod Chloride 0.9% Inj 1,000 ML IV.CONT SCH (19:45)
[2018-01-16 20:52] LABS: Creatine Kinase 122 U/L (39-308)
[2018-01-16] MEDS: Insulin NovoLOG Aspart Correctional Sugar Inj SQ SCH (21:21)
[2018-01-16] MEDS ORDERED: Morphine Sulfate Inj 2 MG/ML Vial IV.PUSH PRN (22:30)
[2018-01-17 02:25] LABS: Creatine Kinase 98 U/L (39-308)
[2018-01-17 06:40] LABS: Baso % (Auto) 1.1 % (0.0-2.0); Eos # (Auto) 0.2 th/mm3 (0.0-0.4); Eos % (Auto) 4.9 % (0.0-4.0); Hematocrit 44.1 % (39.0-51.0); Hemoglobin 14.9 gm/dL (13.0-17.0); Lymph # (Auto) 0.9 th/mm3 (1.0-4.8); Lymph % (Auto) 28.1 % (9.0-44.0); Mean Corpuscular HGB Conc 33.9 % (32.0-36.0); Mean Corpuscular Hemoglobin 33.5 pg (27.0-34.0); Mean Corpuscular Volume 98.8 fL (80.0-100.0); Mean Platelet Volume 7.5 fL (7.0-11.0); Mono # (Auto) 0.4 th/mm3 (0.0-0.9); Mono % (Auto) 13.6 % (0.0-8.0); Neut # (Auto) 1.8 th/mm3 (1.8-7.7); Neut % (Auto) 52.3 % (16.0-70.0); Platelet Count 200 th/mm3 (150-450); Red Blood Count 4.46 mil/mm3 (4.50-5.90); Red Cell Distribution Width 12.1 % (11.6-17.2); White Blood Count 3.3 th/mm3 (4.0-11.0)
[2018-01-17 06:46] LABS: Chloride 104 meq/L (98-107); Potassium 3.8 meq/L (3.5-5.1); Sodium 141 meq/L (136-145)
[2018-01-17 06:50] LABS: Calcium 7.8 mg/dL (8.5-10.1)
[2018-01-17 06:51] LABS: Albumin 3.3 g/dL (3.4-5.0); Anion Gap 8 meq/L (5-15); Blood Urea Nitrogen 9 mg/dL (7-18); Carbon Dioxide 28.8 meq/L (21.0-32.0); Glucose,Random 112 mg/dL (74-106)
[2018-01-17 06:54] LABS: Alanine Aminotransferase 76 U/L (12-78); Aspartate Aminotransferase 48 U/L (15-37); Glomerular Filtration Rate Greater Than 89 mL/min (>89)
[2018-01-17 06:56] LABS: Total Protein 5.9 g/dL (6.4-8.2)
[2018-01-17 06:57] LABS: Alkaline Phosphatase 52 U/L (45-117)
[2018-01-17] MEDS ORDERED: Lisinopril 10 MG Tablet PO SCH (09:00)
--- NOTE | 2018-01-17 09:06 | P.HPIM ---
History of Present Illness Service: [facility] Primary Care Physician: Lamine Westfall DO Chief Complaint: Chest pain History of Present Illness: 52-year-old white male with a history of diabetes mellitus type 2, hypertension , hyperlipidemia, previous history of PE now off anticoagulation presents to the emergency room after instructed by his primary care physician for complaints of intermittent left sided chest pain. Patient states that he has had some dry cough and denies any active shortness of breath associated with the chest pain. 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 He noted when he took some time off from doing this his left-sided chest pain did improve. When he contacted his primary care physician due to his symptoms, he was told to come to emergency room as a precautionary due to his history of PE. His D-dimers were insignificant and had serial cardiac enzymes that were negative with negative EKGs overnight. He was able to localize his chest pain and pointed to the left lower chest and states when he pushed on to it, it does reproduce the pain. He denies any associated abdominal pain nor any nausea or vomiting. - Diagnosis (1) Chest pain Review of Systems All other systems reviewed negative except as stated in HPI PMFSH - History History Provided By: Patient - Medical History Medical History: Medical History (Last Reviewed 01/17/18 @ 08:53 by Maddie Marcus MD) Diabetes History of pulmonary embolism Hyperlipidemia Hypertension - Surgical History Surgical History: Surgical History (Last Reviewed 01/17/18 @ 08:53 by Maddie Marcus MD) History of tonsillectomy - Family History Family History: Family History (Last Reviewed 01/17/18 @ 08:53 by Maddie Marcus MD) Mother History of diabetes mellitus History of throat cancer Father History of heart disease Brother History of heart disease - Social History I have reviewed the patient's Social History: Yes - Tobacco History Second Hand Smoke Exposure: No Tobacco Use In Past 30 Days: No Smoking Status: Never smoker Tobacco Type: Smokeless Tobacco - Alcohol History How Often Do You Have a Drink Containing Alcohol: 4 or more times a week - Substance Use History Substance History: No History of Abuse - Travel History Recent Travel in the [place] Within the Last 8 Weeks: No Recent Travel Out of the Country Within the Last 8 Weeks: No - Immunization History Tetanus Immunization: <5 Years Medications and Allergies Active Medications: Active Medications Al Hydroxide/Mg Hydroxide (Milk Of Magnesia Liq) 30 ml PO Q12H PRN PRN Reason: Mild Constipation Bisacodyl (Dulcolax Supp) 10 mg RECTAL DAILY PRN PRN Reason: SEVERE CONSITIPATION Cyclobenzaprine HCl (Flexeril) 5 mg PO Q8H PRN PRN Reason: spasms Dextrose (D50w Vial) 50 ml IV.PUSH UNSCH PRN PRN Reason: PER HYPOGLYCEMIA PROTOCOL Duloxetine HCl (Cymbalta) 20 mg PO DAILY ANITRA Glucagon (Glucagon Inj) 1 mg OTHER PRN PRN PRN Reason: for Hypoglycemia Protocol Sodium Chloride (Ns Inj) 1,000 mls @ 50 mls/hr IV.CONT .Q20H ANITRA Last Admin: 01/16/18 20:16 Dose: 50 mls/hr Insulin Aspart (Novolog Insulin Correctional Sugar Inj) 0 unit SQ ACHS ANITRA; Protocol Last Admin: 01/16/18 21:21 Dose: Not Given Lactulose (Lactulose Liq) 30 ml PO DAILY PRN PRN Reason: SEVERE CONSITIPATION Lisinopril (Prinivil) 10 mg PO DAILY ANITRA Morphine Sulfate (Morphine Inj) 2 mg IV.PUSH Q3H PRN PRN Reason: pain 1 to 10 Last Admin: 01/16/18 23:37 Dose: 2 mg Sennosides (Senokot) 17.2 mg PO Q12H PRN PRN Reason: Moderate Constipation Allergies Allergy/AdvReac Type Severity Reaction Status Date / Time No Known Allergies Allergy Verified 01/16/18 16:29 Home Medications Medication Instructions Recorded Confirmed Type duloxetine [Cymbalta] 45 mg PO DAILY 12/06/17 01/16/18 History lisinopril 10 mg PO DAILY 12/06/17 01/16/18 History Exam Vital signs: Vital Signs 01/16/18 16:25 01/16/18 17:20 01/16/18 17:24 Temperature 98.8 F Pulse Rate 92 H 96 H 98 H Respiratory Rate 16 16 Blood Pressure 136/82 129/95 H Pulse Oximetry 95 96 01/16/18 18:24 01/16/18 19:34 01/16/18 21:05 Temperature Pulse Rate 90 87 80 Respiratory Rate 16 18 18 Blood Pressure 141/80 H 142/84 H 140/78 Pulse Oximetry 96 98 97 01/17/18 00:00 Temperature 95.5 F L Pulse Rate 79 Respiratory Rate 18 Blood Pressure 131/80 Pulse Oximetry 96 Intake & Output 01/16/18 01/17/18 01/17/18 18:59 06:59 18:59 Intake Total 0 / 0 Output Total 560 / 560 Balance -560 / -560 Weight 94 kg 92.5 kg Intake: Oral 0 / 0 Output: Urine 560 / 560 Other: Weight On Admission 92.986 kg Narrative: GENERAL: Well-nourished well-developed white male no acute distress SKIN: Warm and dry. HEAD: Atraumatic. Normocephalic. EYES: Pupils equal and round. No scleral icterus. No injection or drainage. ENT: No nasal bleeding or discharge. Mucous membranes pink and moist. NECK: Trachea midline. No JVD. CARDIOVASCULAR: Regular rate and rhythm. Chest wallexamination of the left lateral mid chest wall reproduce the localized chest pain patient presented with RESPIRATORY: No accessory muscle use. Clear to auscultation. Breath sounds equal bilaterally. GASTROINTESTINAL: Abdomen soft, non-tender, nondistended. Hepatic and splenic margins not palpable. Normoactive bowel sounds MUSCULOSKELETAL: Extremities without clubbing, cyanosis, or edema. No obvious deformities. NEUROLOGICAL: Awake and alert. No obvious cranial nerve deficits. Motor grossly within normal limits. Five out of 5 muscle strength in the arms and legs. Normal speech. PSYCHIATRIC: Appropriate mood and affect; insight and judgment normal. Results - Labs CBC & Chem 7: 01/17/18 05:00 01/17/18 05:00 Labs: Short CBC 01/16/18 01/17/18 Range/Units 17:10 05:00 WBC 4.1 3.3 L (4.0-11.0) th/mm3 Hgb 15.6 14.9 (13.0-17.0) gm/dL Hct 44.6 44.1 (39.0-51.0) % Plt Count 270 200 (150-450) th/mm3 BMP 01/16/18 01/17/18 17:10 05:00 Sodium 141 141 Potassium 4.1 3.8 Chloride 105 104 Carbon Dioxide 23.5 28.8 BUN 10 9 Creatinine 0.71 0.78 Calcium 8.5 7.8 L Cardiac Enzymes 01/16/18 01/16/18 01/17/18 Range/Units 17:10 20:10 01:35 Total Creatine Kinase 122 98 (39-308) U/L Troponin I Less than 0.02 L Less than 0.02 L Less than 0.02 L (0.02-0.05) ng/mL Liver Function 01/16/18 01/17/18 Range/Units 17:10 05:00 Total Bilirubin 0.4 0.7 (0.2-1.0) mg/dL AST 54 H 48 H (15-37) U/L ALT 89 H 76 (12-78) U/L Alkaline Phosphatase 56 52 (45-117) U/L Albumin 3.8 3.3 L (3.4-5.0) g/dL - Imaging Impressions Chest X-Ray 01/16/18 17:09 CONCLUSION: No acute pulmonary infiltrates. Abdomen/Pelvis CT 01/16/18 18:09 CONCLUSION: 1. Atherosclerosis. 2. Hepatomegaly and hepatic steatosis. 3. Small fat-containing umbilical hernia. - ECG Attestation: I personally reviewed and interpreted this ECG as follows: Prior ECG tracings: not available for review Interpretation: Normal sinus rhythm with heart rate 82 with no acute changes Caprini VTE Risk Assessment Caprini VTE Risk Assessment: Moderate/High Risk (score >= 2) Caprini Risk Assessment Model: Point Value = 1 Point Value = 2 Point Value = 3 Point Value = 5 Age 41-60 Minor surgery BMI > 25 kg/m2 Swollen legs Varicose veins or History of unexplained or recurrent spontaneous Oral contraceptives or hormone replacement Sepsis (< 1 month) Serious lung disease, including pneumonia (< 1 month) Abnormal pulmonary function Acute myocardial infarction Congestive heart failure (< 1 month) History of inflammatory bowel disease Medical patient at bed rest Age 61-74 Arthroscopic surgery Major open surgery (> 45 min) Laparoscopic surgery (> 45 min) Malignancy Confined to bed (> 72 hours) Immobilizing plaster cast Central venous access Age >= 75 History of VTE Family history of VTE Factor V Leiden Prothrombin [id number] Lupus anticoagulant Anticardiolipin antibodies Elevated serum homocysteine Heparin-induced thrombocytopenia Other congenital or acquired thrombophilia Stroke (< 1 month) Elective arthroplasty Hip, pelvis, or leg fracture Acute spinal cord injury (< 1 month) Prophylaxis Regimen: Total Risk Factor Score Risk Level Prophylaxis Regimen 0-1 Low Early ambulation 2 Moderate Order ONE of the following: *Sequential Compression Device (SCD) *Heparin 5000 units SQ BID 3-4 Higher Order ONE of the following medications: *Heparin 5000 units SQ TID *Enoxaparin/Lovenox 40 mg SQ daily (WT < 150 kg, CrCl > 30 mL/min) *Enoxaparin/Lovenox 30 mg SQ daily (WT < 150 kg, CrCl > 10-29 mL/min) *Enoxaparin/Lovenox 30 mg SQ BID (WT < 150 kg, CrCl > 30 mL/min) AND/OR *Sequential Compression Device (SCD) 5 or more Highest Order ONE of the following medications: *Heparin 5000 units SQ TID (Preferred with Epidurals) *Enoxaparin/Lovenox 40 mg SQ daily (WT < 150 kg, CrCl > 30 mL/min) *Enoxaparin/Lovenox 30 mg SQ daily (WT < 150 kg, CrCl > 10-29 mL/min) *Enoxaparin/Lovenox 30 mg SQ BID (WT < 150 kg, CrCl > 30 mL/min) AND *Sequential Compression Device (SCD) Assessment and Plan - Assessment (1) Chest pain Code(s): R07.9 - Chest pain, unspecified Status: Acute - Plan 52-year-old white male with a history of hypertension, hyperlipidemia, diabetes mellitus presents with 1. 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 Recommend anti-inflammatories and Flexeril as needed. Patient has serial cardiac enzymes that were negative with normal EKG. Patient also has negative d-dimer. 2. Daily alcohol consumption-this may lead to mild elevations in his AST ALT which has trended down. Patient was counseled. 3. Mild elevation in lipasethis may be due to his daily alcohol consumption, no signs and symptoms of active pancreatitis and patient is counseled to follow- up as an outpatient. Discharge patient to home Condition on discharge: Improved Diabetic diet as tolerated Ad Grecia activity Rx written: Flexeril 5 mg p.o. every 8 hours as needed for spasms #20 [id number] NSAIDs Aleve Follow-up with primary care physician H&P: Quality - VTE Deep Vein Thrombosis/Pulmonary Embolism Present on Admission: Yes
[2018-01-17] MEDS: Insulin NovoLOG Aspart Correctional Sugar Inj SQ SCH (09:29)
[2018-01-17 10:27] VITALS: BP 145/78; PULSE 67; RESP 20; TEMP 97.6; O2SAT 99
--- NOTE | 2018-01-17 19:05 | ECG ---
Date Performed: 01/17/2018 Time Performed: 01:16:38 PTAGE: 52 years EKG: Sinus rhythm NORMAL ECG PREVIOUS TRACING : 01/16/2018 19.57 Since the previous tracing, no significant change noted DOCTOR: Jesús Trevino Interpretating Date/Time 01/17/2018 19:04:25
--- NOTE | 2018-01-17 19:26 | ECG ---
Date Performed: 01/16/2018 Time Performed: 19:57:35 PTAGE: 52 years EKG: Sinus rhythm EARLY REPOLARIZATION PREVIOUS TRACING : 01/16/2018 17.57 Since the previous tracing, no significant change not ed DOCTOR: Jesús Trevino Interpretating Date/Time 01/17/2018 19:25:20
--- NOTE | 2018-01-17 19:39 | ECG ---
Date Performed: 01/16/2018 Time Performed: 17:57:49 PTAGE: 52 years EKG: Sinus rhythm NORMAL ECG PREVIOUS TRACING : 12/07/2017 00.09 Since the previous tracing, no significant change noted DOCTOR: Jesús Trevino Interpretating Date/Time 01/17/2018 19:38:31
== END 2018-01-17 12:00 | disposition home or self-care (01) ==
LOC: PHEDA 16:14 → PHED 16:14 → PH3 21:50
PROVIDERS: ADMIT Family Medicine; ATTEND Family Medicine